=== PATIENT | female | born 1985 | race Caucasian/White ===

== ENCOUNTER 2017-02-27 22:30 | Inpatient (IN) | payer OTHER ==
[~2017-02-27] VITALS: Ht 160 cm; Wt 76.7 kg
[2017-02-27] MEDS ORDERED: Methylergonovine 0.2 mg/mL Inj IM PRN (23:05)
[2017-02-27] MEDS ORDERED: fentaNYL-PF 50 mCg/mL 2 mL Inj IVPUSH PRN (23:05)
[2017-02-27] MEDS ORDERED: Ondansetron 2 mg/mL 2 mL Inj IVPUSH PRN (23:05)
[2017-02-27] MEDS ORDERED: Carboprost 250 mCg/mL Inj IM PRN (23:05)
[2017-02-27] MEDS ORDERED: Hemorrhage Kit, Post Partum XX ONE (23:05)
[2017-02-27] MEDS ORDERED: Oxytocin 30 Units/500 mL LR 30 UNITS in IV Premix 1 EACH IV PRN (23:05)
[2017-02-27] MEDS ORDERED: Oxytocin 10 Unit/mL Inj IM PRN (23:05)
[2017-02-27] MEDS ORDERED: Sodium Chloride LOK Flush 10 mL Syringe IVFLUSH PRN (23:05)
[2017-02-27 23:37] LABS: Mean Corpuscular Hemoglobin 26.6 pg (27.0-35.0); Mean Corpuscular Volume 82.9 fL (81-100)
[2017-02-27] MEDS: Lactated Ringer's 1,000 ML IV PRN (23:40)
[2017-02-28] MEDS: Lactated Ringer's 1,000 ML IV PRN (02:49)
[2017-02-28] MEDS ORDERED: fentaNYL 2 mCg/mL-Bupivicaine 0.125% 100 mL Premix EPIDURAL ONE (02:52)
[2017-02-28] MEDS ORDERED: Ondansetron 2 mg/mL 2 mL Inj IVPUSH PRN (02:55)
[2017-02-28] MEDS ORDERED: fentaNYL 2 mCg/mL-Bupiv 0.125% 100 ML EPIDURAL SCH (02:55)
[2017-02-28] MEDS ORDERED: Lactated Ringer's 500 ML IV ONE (02:55)
[2017-02-28] MEDS ORDERED: Atropine 1 mg/10 mL (Code) Syringe IVPUSH PRN (02:55)
--- NOTE | 2017-02-28 04:05 | PCM.HPANE ---
Patient Data Surgeon Admitting Provider:Sudhakar Gilbert MD Attending Provider:Sudhakar Gilbert MD Primary Care Physician:Stan Austin MD Other Provider:Vira Barrera Anesthesia Reason for Visit LABOR LABOR Ht/WT & BMI Body Mass Index Allergies Coded Allergies: No Known Allergies (Unverified Allergy, 12/27/13) Past Anesthesia History Anesthesia History: Denies:: Abnormal Airway, Anesthesia Reactions, Difficult Intubation, Fam Anesthesia Reaction, Fam Malignant Hypertherm, Malignant Hyperthermia Diabetes History Hx Diabetes?: No History History of ENT Problems?: No HEENT History: Denies:: Abnormal Airway Cataracts Difficult Intubation Dysphagia Glaucoma Hearing Problem Sinus Problem TMJ Denture Type: None Teeth Condition: Within Normal Limits Hx of Heart Problems?: No Cardiovascular History: Denies:: AICD Abdominal Aortic Aneurism Atrial Fibrillation Cardiac Surgery Chest Pain Congestive Heart Failure Coronary Artery Disease Edema Heart Murmur Hypertension Irregular Heartbeat Pacemaker Peripheral Vascular Rheumatic Fever Thrombophlebitis Valvular Heart Disease Hx of Respiratory Problem?: No Respiratory History: Denies:: Asthma COPD Chest Surgery Cough Dyspnea Emphysema Hemoptysis Oxygen Administration Pneumonia Pulmonary Embolism Tuberculosis Use of C-PAP Machine Use of Inhalers / NEBS Hx Neurologic Problems?: No Neurological History: Denies:: Alzheimer's Disease CVA Dementia Dizziness Headaches Multiple Sclerosis Parkinson's Disease Peripheral Neuropathy Seizures TIA Hx of GI Problems?: No Gastrointestinal History: Denies:: Cirrhosis Diverticulitis Gall Bladder Disease Gastroesphageal Reflux Gastrointestinal Bleeding Heartburn Hepatitis Hiatal Hernia Liver Disease Rectal Bleeding Hx of Problems?: No Genitourinary History: Denies:: HX of Hemodialysis Kidney Stones Urinary Tract Infection HX of Peritoneal Dialysis: No Female Hx: Positive for:: Currently Denies:: Endometriosis Pelvic Inflammatory Problems with Breasts? Skin History: Denies:: History Skin Disorders? Pressure Ulcers Hx Musculoskeletal Problems?: No Musculoskeletal History: Denies:: Back Injury Degenerative Joint Fibromyalgia Joint Replacement Musculoskeletal Trauma Myasthenia Gravis Osteoarthritis Rheumatoid Arthritis Systemic Lupus Hx of Psycho/Social Problems?: No Psycho Social History: Denies:: Anxiety Bipolar Disorder Hx Depression Suicide Attempt Hx Surgeries?: No Hx Any Other Health Problems?: No Hx Diabetes: No Hx Alcohol Use: NoHx Substance Use: No Smoking Status: Never Smoker Have You Smoked inLast 12 mo: No Stop/Bang Risk Assessment Category Category 1A: Patient has history of documented sleep apnea, and HAS NOT received any narcotic, sedative or anesthesia administration during this stay. Category 1B: Patient has history of documented sleep apnea, and HAS received any narcotic , sedative or anesthesia administration during this stay Category 2: Patient has SUSPECTED Obstructive Sleep Apnea, and HAS received any narcotic , sedative or anesthesia administration during this stay. Category 3: Patient has SUSPECTED Obstructive Sleep Apnea and HAS NOT received narcotic, sedative or anesthesia administration during this stay. Category 4: Outpatient in Procedural Areas with known sleep apnea or who screen positive for High Risk via the STOP/BANG questionnaire. Exam Exam General Appearance: Alert, Oriented X3, Cooperative, Severe Distress (labor pain) HEENT/AIRWAY: MP 2, Neck Movement (FROM), Mouth Opening (3 FBMO) Lungs: Normal Air Movement Heart: Regular Rate/Rhythm Meds/Labs/Diagnostics Labs Test 02/27/17 23:25 White Blood Count 10.5th/mm3 (3.8-10.1) Red Blood Count 3.87mil/mm3 (3.90-5.20) Hemoglobin 10.3g/dL (12.0-15.6) Hematocrit 32.1% (35.0-46.0) Mean Corpuscular Volume 82.9fL (81-100) Mean Corpuscular Hemoglobin 26.6pg (27.0-35.0) Mean Corpuscular Hemoglobin Concent 32.1% (32.0-37.0) Red Cell Distribution Width 18.8% (12.3-15.4) Platelet Count 235bil/L (150-400) Plan Impression Patient chart reviewed, patient interviewed and anesthestic plan with risks, benefits, and alternatives discussed, and informed consent obtained. NPO per Anesth. Guidelines: No ASA Physical Status: ASA1 Normal Healthy Anesthetic Plan: Epidural Bene/Risks/Altern/Consents: Yes HP Complete Prior to Induction: Yes Jamin Parker MD February 28, 2017 02:55
[2017-02-28] MEDS: EPHEDrine Sulfate 50 mg/mL Inj IVPUSH PRN ×2 (04:24→04:44)
[2017-02-28] MEDS: Lactated Ringer's 1,000 ML IV SCH ×5 (05:33→18:55)
[2017-02-28] MEDS ORDERED: Hemorrhage Kit, Post Partum XX ONE (08:45)
[2017-02-28] MEDS ORDERED: Benzocaine (Dermoplast) 20% 60 Gm Spray TOPICAL PRN (08:45)
[2017-02-28] MEDS ORDERED: Oxytocin 30 Units/500 mL LR 30 UNITS in IV Premix 1 EACH IV PRN (08:45)
[2017-02-28] MEDS ORDERED: Oxytocin 10 Unit/mL Inj IM PRN (08:45)
[2017-02-28] MEDS ORDERED: LANOlin HPA 7 Gm Ointment TOPICAL PRN (08:45)
[2017-02-28] MEDS ORDERED: Carboprost 250 mCg/mL Inj IM PRN (08:45)
[2017-02-28] MEDS ORDERED: Witch Hazel-Glycerin Pads TOPICAL PRN (08:45)
[2017-02-28] MEDS ORDERED: Methylergonovine 0.2 mg/mL Inj IM PRN (08:45)
[2017-02-28] MEDS: HYDROcodone-APAP 5-325 mg Tablet PO PRN ×4 (09:03→23:32)
[2017-03-01] MEDS: Lactated Ringer's 1,000 ML IV SCH ×2 (00:44→02:55)
[2017-03-01] MEDS: HYDROcodone-APAP 5-325 mg Tablet PO PRN ×2 (05:40→09:54)
[2017-03-01 07:25] LABS: Mean Corpuscular Hemoglobin 26.6 pg (27.0-35.0); Mean Corpuscular Volume 84.1 fL (81-100)
--- NOTE | 2017-03-01 08:59 | OP ---
[address] [address] OPERATIVE REPORT PATIENT: FREEMAN PUENTES : 1985 MR#: [id number] ADMIT: 02/27/2017 JOB ID: [id number] DATE OF SURGERY: 02/28/2017 PREOPERATIVE DIAGNOSIS(ES): POSTOPERATIVE DIAGNOSIS(ES): SURGEON: Sudhakar Gilbert M.D. On February 28, 2017 at 8:28 a.m., this G 3, P 1 female at 35 weeks and 6 days estimated gestational age delivered a vigorous infant female with Apgars of 6 and 8 by vacuum delivery. The patient presented on February 27, 2017 at around 10 p.m. and had had spontaneous rupture of membranes earlier in the evening. She was known to be GBS negative. The fluid was clear. The patient was 2-3 cm dilated at the time of arrival. She was lucas irregularly. We let her enter labor herself and she did so in the usual fashion, changing her cervix quite normally to 6 cm before she required an epidural. She continued to progress in a normal fashion and was completed about 7:30 a.m. on February 28, 2017. The epidural was incomplete so she was quite uncomfortable to her right side, but she also had inefficiency of pushing. She started pushing about 7:45. She continued to push for about a half hour before I reassessed and felt that this fetus was asynclitic. I then reached in and adjusted the head manually. This resulted in some improvement in her pushing at +2 station but she continued to struggle with the coordination of pushing. I did use a vacuum initially for a series of approximately two pulls, being careful to avoid the fontanelle and as well as avoiding the cervix in placement. This resulted in additional advancement to +1 station. I continued to let her push due to the fact that the heart strip looked so excellent. It was reassuring. I then found that her discoordination required the application of the vacuum one more time over one set of contractions. The vacuum was used to bring the baby to . It was then released and the patient did the rest herself delivering the head in excellent fashion. A tight nuchal cord was reduced. The shoulders delivered with a little bit of difficulty, but after about 30 seconds. The rest of the delivered and the tone was noted to be somewhat poor at first. The was revived on her mother. The cord was clamped and cut and additional resuscitation was done in minor fashion with drying and warming and some blow-by oxygen. The placenta delivered approximately five minutes later spontaneously and intact. This was all across an intact perineum. There was no damage to the cervix or to rectum. Pitocin was started at full strength after the patient had about a 300 cc bleed. Total bleeding was about that, however. The patient then was noted to have a firm uterus. There were no other complications of delivery and counts were correct x2.
--- NOTE | 2017-03-01 17:45 | PCM.DC.OB ---
Obstetrical Discharge Summary Date of Service March 01, 2017 Date of hospital admission February 27, 2017 at 22:53 Date of Discharge: March 01, 2017 Providers Admitting Physician: Sudhakar Gilbert MD Primary Care Physician: Stan Austin MD Attending Physician: Sudhakar Gilbert MD Problems: (1) Status post normal vaginal delivery Status: Acute ICD Code: [id number] Consultations None Invasive procedures NVD Date of Procedure: February 28, 2017 Hospital Course: Delivered and recovered in excellent fashion Discharge Diet: No restrictions Discharge Activity-General: Pelvic Rest for 6 weeks, Try not to overdue, Activity as pain allows, Activity as energy allows Sudhakar Gilbert MD March 01, 2017 17:45
--- NOTE | 2017-03-01 17:46 | PCM.DIOB ---
Obstetrical Disch Instruction Date of Service: March 01, 2017 Dates of Hospitalization Date of Hospital Admission February 27, 2017 at 22:53 Providers Admitting Physician: Sudhakar Gilbert MD Primary Care Physician: Stan Austin MD Attending Physician: Sudhakar Gilbert MD Discharge Diagnosis Problems: (1) Status post normal vaginal delivery Status: Acute ICD Code: [id number] Diet Discharge Diet: No restrictions Activity Discharge Activity-General: Pelvic Rest for 6 weeks, Be up and about, Balance rest and activity, Activity as pain allows, No lifting >15 pounds for 2 weeks Dressing and Incisional Care Hygiene: February shower, Perineal care, Sitz bath, Dermoplast spray, Witch Emma pads Follow Up Plan Follow-up Provider (F9): Sudhakar Gilbert MD Follow-up appointment: Weeks (8) Call your provider for: Fever or Chills, Heavy vaginal bleeding, Excessive constipation, Vaginal discomfort, Red painful breasts Sudhakar Gilbert MD March 01, 2017 17:46
[2017-03-01 17:53] VITALS: BP 130/79; PULSE 81; RESP 16
--- NOTE | 2017-03-05 10:44 | PATH ---
SURGICAL PATHOLOGY Attending Physician:Sudhakar Gilbert MD CASE STATUS: Signed Out PATIENT NAME: FREEMAN PUENTES PID: [id number] : 1985 DATE COLLECTED:02/27/2017 00:00 SPECIMEN: Placenta CLINICAL HISTORY: 1.PLACENTA FINAL DIAGNOSIS: 1.PLACENTA WITH UMBILICAL CORD AND MEMBRANES: 1. PLACENTA: 674 GRAMS, WHICH IS APPROXIMATELY THE 98TH PERCENTILE FOR 35 WEEKS 6 DAYS GESTATION. NEGATIVE FOR EVIDENCE OF INFARCTION. NEGATIVE FOR SIGNIFICANT INFLAMMATION AND SIGNIFICANT VASCULAR LESIONS. 2. MEMBRANES: MARGINALLY ATTACHED. MEMBRANES RUPTURED 9.0 CM FROM THE CLOSEST PLACENTAL EDGE. NEGATIVE FOR SIGNIFICANT INFLAMMATION. 3.UMBILICAL CORD: 22.0 CM IN LENGTH WITH THREE NORMAL BLOOD VESSELS. ECCENTRIC ATTACHMENT. NEGATIVE FOR SIGNIFICANT INFLAMMATION. ICD10 CODE O42.913 GROSS DESCRIPTION: Specimen received in formalin, site unstated, consists of a placental disc measuring 17.0 x 16.0 x 4.0 cm and weighing 674 grams. The trivascular cord measures 22 cm in length by 1.5 cm in diameter. It is eccentrically located. The membrane is marginally attached. Point of rupture is 9 cm from the closest placental edge. The membrane is pale pena, thin, consistent, glistening and unremarkable. surface is red-pena, patel, vascular, smooth and glistening. Material surface and cotyledons are red-pena, spongy with focal areas of hemorrhage. No infarction is grossly identified. Field Crew Chief sections submitted as follows: cassette #1-cord and membrane; cassettes B, C and D-bilingual sales representative sections from placental tissue. ([id number]) MICRO DESCRIPTION: See diagnosis. ICD-9 CODES: CPT CODES: 1: 61228 Electronically Signed Out Micky Lorenzo MD [facility] [address], [place] [address] Technical component performed at [facility], [facility] [address], [place], [address]
== END 2017-03-01 19:00 | disposition home or self-care (01) | DRG 775 ==
LOC: FBCO 22:30 → FBC 22:53
PROVIDERS: ADMIT Family Medicine; ATTEND Family Medicine
PROC: 10D07Z6 Extraction of Products of Conception, Vacuum, Via Natural or Artificial Opening (ICD-10-PCS; principal; 2017-02-28)
DX: O42.013 Preterm premature rupture of membranes, onset of labor within 24 hours of rupture, third trimester (principal); Z3A.35 35 weeks gestation of pregnancy; Z37.0 Single live birth; O69.81X0 Labor and delivery complicated by cord around neck, without compression, not applicable or unspecified